=== PATIENT | female | born 1990 | race American Indian/Alaskan Native ===

== ENCOUNTER 2016-12-25 15:32 | Outpatient (CLI) | payer MEDICAID ==
--- NOTE | 2016-12-25 17:19 | History and Physical Report ---
History of Present Illness Date of examination: 12/25/16 Date of admission: 12/25/16 15:31 Chief complaint: Contractions History of present illness: 26 yo at 39 weeks. Pt had care at [facility] [facility] since 11.4 weeks gestation. Course complicated by loss of care from 31 weeks to 38 weeks due to lack of transportation just after diagnosis of GDM. Pateint also did not see [facility] for follow up of GDM. When patient returned to care at 38.5 weeks she reported that she had changed her diet but only occasionally checked her blood glucose and that when she did it was always "low". She was sent at 38.5 weeks to [facility] for delivery where she was then sent home. Pt presented in office today with cervical exam of - and was sent in for EFW (pending) and BPP (pending). Past History Past Medical History: no pertinent history Past Surgical History: no surgical history LOBBY PORTER History: chlamydia Family/Genetic History: cancer (lung), other (Asthma) - Obstetrical History Expected Date of Delivery: 01/01/17 Actual Gestation: 39 Week(s) 0 Day(s) : 2 Para: 1 Hx # Term Pregnancies: 1 Spontaneous Abortions: 0 Induced : 0 Number of Living Children: 1 Medications and Allergies Allergies Allergy/AdvReac Type Severity Reaction Status Date / Time No Known Allergies Allergy Unverified 12/25/16 15:34 Review of Systems All systems: negative - Physical Exam Cardiovascular: Regular rate Lungs: Positive: Normal air movement Abdomen: Positive: soft Uterus: Positive: enlarged Extremities: Positive: normal Deep Tendon Reflex Grade: Normal +2 - Obstetrical FHR comments: Not on monitor at this time Results All other labs normal. Assessment and Plan A: IUP @39 weeks Uncontrolled GDM GBS negative Cervical exam /-2 P: Admit to L&D BPP and EFW pending Consult with Dr. Rae with results of BPP and EFW for continued plan.
--- NOTE | 2016-12-25 17:36 | Event Note ---
Date: 12/25/16 Asked to see this 26-year-old 001 at 39 weeks gestation was admitted from the clinic, she is a lifecycle OBGYN patient. On chart review and oral history from charge master coordinator, patient was noncompliant with care despite diagnosis of gestational diabetes. On questioning patient about her history of noncompliance , patient became defensive. Patient claims she did attend care and only missed the last month. She claims she was aware of her diagnosis of diabetes but was instructed only to check her blood sugar at home and was never referred to the high-risk physicians. Estimated weight obtained here in the hospital puts her at 4294 g. It appears patient has had advanced cervical dilation of 5-6 cm for at least 2 days. I explained to the patient that she will need to have a due to suspected macrosomia and discussed risks of surgery with her. Patient apparently declines to have me perform the surgery and wishes to sign out AGAINST MEDICAL ADVICE. Spent some time discussing the risks associated with her present condition and the need to proceed emergently with delivery with her and her sister, she still wishes to leave AGAINST MEDICAL ADVICE and has signed a consent.
--- NOTE | 2016-12-27 13:23 | Ultrasound Report ---
BIOPHYSICAL PROFILE: Technique: Transabdominal ultrasound with Doppler interrogation. 2 - breathing movements 2 - movements 2 - posture and tone 2 - Qualitative amniotic fluid volume 8 - TOTAL SCORE OF POSSIBLE 8 Heart Rate (bpm) 120
--- NOTE | 2016-12-28 08:05 | Ultrasound Report ---
OB ULTRASOUND Technique: Transabdominal ultrasound with Doppler interrogation. Gestation: Single Position: Cephalic Amniotic Fluid: Normal KIMBER = 11.6 cm Heart Rate: 120 BPM BPD: 9.9 cm = 40 w 4 d HC: 36.4 cm = out of range AC: 37.9 cm = 41 w 6 d FL: 7.4 cm = 37 w 6 d HC/AC Ratio: 0.96 Cephalic Index: 76.4 Estimated Weight: 4294 grams LMP: Clinical age = 39 w 0 d EDC: 01/01/17 US Gest. Age = 40 w 1 d EDC: 12/24/16
== END 2016-12-25 17:36 | disposition left against medical advice (07) ==
LOC: OB 15:32 → TRG 15:32 → INTOOBSV 15:32 → UNDOADMOB 15:32 → TRG 17:36 → UNDODISIN 17:36 → UNDODISOB 17:36 → EDSTATUS 01-04 10:13
PROVIDERS: ATTEND Obstetrics & Gynecology
DX: Z34.93 Encounter for supervision of normal pregnancy, unspecified, third trimester (principal); Z3A.39 39 weeks gestation of pregnancy
CPT/HCPCS: 76816; 76819; G0378; G0379

== ENCOUNTER 2018-03-25 20:42 | Emergency (ER) | payer MEDICAID ==
[2018-03-25] MEDS ORDERED: TYLENOL ONE (22:03)
[2018-03-25] MEDS ORDERED: TYLENOL PO ONE (22:03)
[2018-03-25 22:24] LABS: Basophils % (Auto) 0.4 % (0.0-1.8); Eosinophils % (Auto) 0.1 % (0.0-4.3); Lymphocytes # (Auto) 1.4 K/mm3 (1.2-5.4); Lymphocytes % (Auto) 11.4 % (13.4-35.0); Mean Corpuscular HGB Conc 31 % (30-34); Mean Corpuscular Volume 78 fl (79-97); Monocytes # (Auto) 0.6 K/mm3 (0.0-0.8); Monocytes % (Auto) 4.7 % (0.0-7.3); Platelet Count 378 K/mm3 (140-440); Red Blood Count 4.57 M/mm3 (3.65-5.03)
[2018-03-25 22:38] LABS: BUN/Creatinine Ratio 20; Blood Urea Nitrogen 12 mg/dL (7-17); Calcium 8.8 mg/dL (8.4-10.2); Hemolysis Index 8
[2018-03-25 22:43] LABS: Hemoglobin 10.9 gm/dl (10.1-14.3)
[2018-03-25 22:44] LABS: Hematocrit 35.9 % (30.3-42.9); Mean Corpuscular Hemoglobin 24 pg (28-32); Red Cell Distribution Width 20.2 % (13.2-15.2)
[2018-03-26] MEDS ORDERED: TENIVAC IM ONE
--- NOTE | 2018-03-26 00:03 | Emergency Department Report ---
HPI - General Chief Complaint: Head Injury Time Seen by Provider: 03/25/18 23:48 - HPI HPI: 27-year-old female presents to the emergency department with complaint of hitting her head and the left side of her scalp around 5:00 today. She was walking down the street and tripped and says that she fell and hit her head on the curb. She denies any loss of consciousness and says she was able to get up and continue. She says that she has been having some intermittent episodes of lightheadedness and was told that when she had her baby that she had anemia and may need blood transfusions. Otherwise she denies any other past medical history. She did not take anything for her symptoms prior to presentation. She presented with a headache but got some Tylenol through triage and currently says that her headache has resolved, down to 0 out of 10. Patient says that the right lower eyelid started swelling up when she got to the emergency Department but denies hitting her face during the fall. She denies any vision change, slurred speech. She says that she thinks she has some type of a cut to the scalp as she had bleeding when she fell. She is unsure whether she is up-to-date with her tetanus vaccination. ED Past Medical Hx - Past Medical History Additional medical history: Anemia - Surgical History Additional Surgical History: X 2. - Social History Smoking Status: Never Smoker Substance Use Type: None - Medications Home Medications: Home Medications Medication Instructions Recorded Confirmed Last Taken Type No Known Home Medications [No 03/25/18 03/25/18 Unknown History Reported Home Medications] ED Review of Systems ROS: Stated complaint: FALL/GASH IN HEAD Other details as noted in HPI Comment: All other systems reviewed and negative Constitutional: denies: chills, fever Eyes: denies: eye pain, eye discharge, vision change ENT: denies: ear pain, throat pain Respiratory: denies: cough, shortness of breath, wheezing Cardiovascular: denies: chest pain, palpitations Gastrointestinal: denies: abdominal pain, nausea, diarrhea Genitourinary: denies: urgency, dysuria, discharge Musculoskeletal: denies: back pain, joint swelling, arthralgia Skin: denies: rash, change in color Neurological: headache. denies: numbness Physical Exam - Physical Exam Vital Signs: Vital Signs 03/25/18 21:48 Temperature 98 F Pulse Rate 88 Respiratory 16 Rate Blood Pressure 111/55 O2 Sat by Pulse 100 Oximetry Physical Exam: GENERAL: The patient is well-developed well-nourished. HENT: Normocephalic. Atraumatic. Patient has moist mucous membranes. EYES: Extraocular motions are intact. Pupils equal reactive to light bilaterally. NECK: Supple. Trachea is midline. CHEST/LUNGS: Clear to auscultation. There is no respiratory distress noted. HEART/CARDIOVASCULAR: Regular. There is no tachycardia. There is no murmur. ABDOMEN: Abdomen is soft, nontender. Patient has normal bowel sounds. There is no abdominal distention. SKIN: Skin is warm and dry. There is some mild swelling to the right lower eyelid. No erythema or warmth. There is a small circular abrasion about 1 cm in diameter to the left parietal scalp. No signs or symptoms of infection. NEURO: The patient is awake, alert, and oriented. The patient is cooperative. The patient has no focal neurologic deficits. The patient has normal speech. Cranial nerves II through XII grossly intact. GCS of 15. MUSCULOSKELETAL: There is no tenderness or deformity. There is no limitation range of motion. There is no evidence of acute injury. ED Course Vital Signs 03/25/18 21:48 Temperature 98 F Pulse Rate 88 Respiratory 16 Rate Blood Pressure 111/55 O2 Sat by Pulse 100 Oximetry ED Medical Decision Making - Lab Data Result diagrams: 03/25/18 22:10 03/25/18 22:10 - Medical Decision Making Patient tripped and fell and hit her head earlier today around 5 PM. She has been in the emergency department for over 3 hours and her head injury was about 5 or 6 hours prior. Her headache has completely resolved with one dose of Tylenol. There is no significant swelling or any obvious deformity. There is a small abrasion where she hit her head that has no current bleeding or no signs or symptoms of infection. Patient was unsure of her tetanus vaccination but deferred getting a booster. She is awake and alert without any focal, motor or sensory deficits in her cranial nerves are intact. She did not want any CT imaging of the head done. She did not want any antibiotics. She will use soap and water to clean the area and has been given referrals for primary care. She's been encouraged to return to the emergency Department with any worsening of her symptoms or any acute distress. - Differential Diagnosis contusion, abrasion, laceration, brain bleed, skull fracture Critical Care Time: No Critical care attestation.: If time is entered above; I have spent that time in minutes in the direct care of this critically ill patient, excluding procedure time. ED Disposition Clinical Impression: Abrasion of scalp Qualifiers: Encounter type: initial encounter Qualified Code(s): S00.01XA - Abrasion of scalp, initial encounter Head injury Qualifiers: Encounter type: initial encounter Qualified Code(s): S09.90XA - Unspecified injury of head, initial encounter Disposition: TO HOME OR SELFCARE Is pt being admited?: No Condition: Stable Instructions: Minor Head Injury (ED), Abrasion (ED) Additional Instructions: Please follow up with a primary care physician in the next few days. Return to the emergency department with any return of your headache, any signs of infection, or with any acute distress. Referrals: PRIMARY MD GOVIND [Primary Care Provider] - 3-5 Days TERELL YOUNG MD [Staff Physician] - 3-5 Days [facility] [Outside] - 3-5 Days Time of Disposition: 00:08
[2018-03-26 00:41] VITALS: BP 121/57
== END 2018-03-26 00:59 | disposition home or self-care (01) ==
LOC: ED 20:42
DX: S09.90XA Unspecified injury of head, initial encounter (principal); S00.01XA Abrasion of scalp, initial encounter; D64.9 Anemia, unspecified; W18.30XA Fall on same level, unspecified, initial encounter; Y93.89 Activity, other specified; Y99.8 Other external cause status; Y92.89 Other specified places as the place of occurrence of the external cause
CPT/HCPCS: 36415; 80048; 84703; 85025; 86850; 86900; 86901; 90714